=== PATIENT | female | born 1965 | race Caucasian/White ===

== ENCOUNTER 2022-05-18 09:30 | Emergency (ER) | payer MEDICARE ==
[2022-05-18 09:59] LABS: BASO # 0.1 10*3/uL (0.0-0.1); BASO % 0.4 % (0.0-1.0); EOS # 0.4 10*3/uL (0.0-0.4); EOS % 3.3 % (1.0-4.0); HEMATOCRIT 42.4 % (37.0-47.0); LYMPH # 3.9 10*3/uL (1.3-4.4); LYMPH % 33.7 % (27.0-41.0); MEAN CELL VOLUME 86.2 fl (81.0-99.0); MEAN CORPUSCULAR HGB 28.5 pg (27.0-31.0); MEAN PLATELET VOLUME 11.7 fl (9.6-12.3); MONO # 0.7 10*3/uL (0.1-1.0); MONO % 5.9 % (3.0-9.0); NEUT # 6.5 10*3/uL (2.3-7.9); NEUT % 56.1 % (47.0-73.0); PLATELET COUNT AUTOMATED 246 10*3/uL (130-400); RED BLOOD COUNT 4.92 10*6/uL (4.10-5.10); WHITE BLOOD COUNT 11.5 10*3/uL (4.8-10.8)
[2022-05-18 10:12] LABS: ACT PARTIAL THROMBO TIME 27.1 SECONDS (20.0-32.1)
[2022-05-18 10:14] LABS: ALKALINE PHOSPHATASE 79 U/L (46-116); BUN 10 mg/dl (9-23); CHLORIDE 102 mmol/L (98-107); CREATININE 0.79 mg/dL (0.55-1.02); LIPASE 45 U/L (12-53); SGPT/ALT 37 U/L (10-49); SODIUM 137 mmol/L (136-145)
[2022-05-18 10:15] LABS: TOTAL PROTEIN 7.7 gm/dL (6.0-8.0)
== END 2022-05-18 11:39 | disposition home or self-care (01) ==
LOC: ED 09:30
PROVIDERS: Family Medicine
DX: E11.65 Type 2 diabetes mellitus with hyperglycemia (principal); Z20.822 Contact with and (suspected) exposure to COVID-19

== ENCOUNTER → 2022-05-18 | Outpatient (CLI) | payer MEDICARE | END | disposition home or self-care (01) | LOC: RESCLI 09:14 | PROVIDERS: ATTEND Internal Medicine | DX: Z53.9 Procedure and treatment not carried out, unspecified reason (principal) ==

== ENCOUNTER → 2022-05-19 | Outpatient (CLI) | payer MEDICARE | END | disposition home or self-care (01) | LOC: LAB 12:23 | PROVIDERS: ATTEND Internal Medicine | DX: E11.65 Type 2 diabetes mellitus with hyperglycemia (principal) ==

== ENCOUNTER 2022-06-12 10:43 | Emergency (ER) | payer MEDICARE ==
[~2022-06-12] VITALS: Ht 157.4 cm; Wt 78.0 kg
[2022-06-12 12:27] LABS: BASO % 0.3 % (0.0-1.0); EOS # 0.2 10*3/uL (0.0-0.4); HEMATOCRIT 43.4 % (37.0-47.0); LYMPH # 3.8 10*3/uL (1.3-4.4); LYMPH % 32.8 % (27.0-41.0); MEAN CELL VOLUME 85.8 fl (81.0-99.0); MEAN CORPUSCULAR HGB 27.7 pg (27.0-31.0); MEAN CORPUSCULAR HGB CONC 32.3 g/dl (33.0-37.0); MEAN PLATELET VOLUME 11.6 fl (9.6-12.3); MONO # 0.8 10*3/uL (0.1-1.0); NEUT # 6.6 10*3/uL (2.3-7.9); NEUT % 57.6 % (47.0-73.0); PLATELET COUNT AUTOMATED 245 10*3/uL (130-400); RED BLOOD COUNT 5.06 10*6/uL (4.10-5.10); RED CELL DISTRI WIDTH 15.2 % (0-14.5); WHITE BLOOD COUNT 11.5 10*3/uL (4.8-10.8)
[2022-06-12 12:38] LABS: BILIRUBIN Negative (Negative); BLOOD Negative (Negative); CLARITY Clear (Clear); COLOR Yellow (Yellow); GLUCOSE Negative (Negative); KETONE Negative (Negative); LEUKO ESTERASE Negative (Negative); NITRITE Negative (Negative); PH 7.5 (4.5-8.0); SPECIFIC GRAVITY <= 1.005 (1.001-1.030); UROBILINOGEN 0.2 E.U./dl (0.0-1.0)
[2022-06-12 12:50] LABS: EPITHELIAL CELLS 0-2; WBC 0-2 wbc/hpf (0-5)
[2022-06-12 12:54] LABS: ALKALINE PHOSPHATASE 74 U/L (46-116); BUN 8 mg/dl (9-23); CHLORIDE 101 mmol/L (98-107); CREATININE 0.63 mg/dL (0.55-1.02); LIPASE 43 U/L (12-53); POTASSIUM 3.5 mmol/L (3.4-5.1); SGPT/ALT 38 U/L (10-49); TOTAL PROTEIN 7.4 gm/dL (6.0-8.0)
[2022-06-12] MEDS ORDERED: CIPRO500 MG PO (17:19)
[2022-06-12] MEDS ORDERED: METRONIDAZOLE500 M1 PO (17:19)
== END 2022-06-12 17:33 | disposition home or self-care (01) ==
LOC: ED 10:43
PROVIDERS: Physician Assistant
DX: K52.9 Noninfective gastroenteritis and colitis, unspecified (principal); Z88.1 Allergy status to other antibiotic agents; Z88.8 Allergy status to other drugs, medicaments and biological substances

== ENCOUNTER → 2022-07-17 | Outpatient (CLI) | payer MEDICARE ==
[~2022-07-17] MED LIST: CIPRO500 MG PO; METRONIDAZOLE500 M1 PO
[2022-07-20 17:06] LABS: FATS, NEUTRAL Normal (.); FATS, TOTAL Increased (.)
== END | disposition home or self-care (01) ==
LOC: LAB 07-16 07:26
PROVIDERS: ATTEND Nurse Practitioner Family
DX: R19.7 Diarrhea, unspecified (principal)

== ENCOUNTER → 2022-07-17 | Outpatient (CLI) | payer MEDICARE ==
[2022-07-17 08:10] LABS: HEMATOCRIT 43.7 % (37.0-47.0); MEAN CELL VOLUME 86.4 fl (81.0-99.0); MEAN CORPUSCULAR HGB 27.9 pg (27.0-31.0); MEAN CORPUSCULAR HGB CONC 32.3 g/dl (33.0-37.0); MEAN PLATELET VOLUME 12.3 fl (9.6-12.3); RED BLOOD COUNT 5.06 10*6/uL (4.10-5.10); RED CELL DISTRI WIDTH 15.1 % (0-14.5); WHITE BLOOD COUNT 10.9 10*3/uL (4.8-10.8)
== END | disposition home or self-care (01) ==
LOC: LAB 07:24
PROVIDERS: ATTEND Nurse Practitioner Family
DX: K92.1 Melena (principal)

== ENCOUNTER → 2022-08-25 | Outpatient (CLI) | payer MEDICARE | END | disposition home or self-care (01) | LOC: CT 00:26 | PROVIDERS: ATTEND Specialist | DX: J32.0 Chronic maxillary sinusitis (principal); R59.0 Localized enlarged lymph nodes ==

== ENCOUNTER → 2022-09-08 | Outpatient (CLI) | payer MEDICARE | END | disposition home or self-care (01) | LOC: US 01:29 | PROVIDERS: ATTEND Internal Medicine | DX: N60.02 Solitary cyst of left breast (principal); R92.2 Inconclusive mammogram ==

== ENCOUNTER 2023-03-02 07:35 | Emergency (ER) | payer MEDICARE ==
[~2023-03-02] VITALS: Ht 157.4 cm; Wt 79.4 kg
[2023-03-02 08:38] LABS: BILIRUBIN Negative (Negative); BLOOD Negative (Negative); CLARITY Clear (Clear); COLOR Yellow (Yellow); GLUCOSE 3+ (Negative); KETONE Negative (Negative); LEUKO ESTERASE Negative (Negative); NITRITE Negative (Negative); SPECIFIC GRAVITY <= 1.005 (1.001-1.030); UROBILINOGEN 0.2 E.U./dl (0.0-1.0)
[2023-03-02 09:01] LABS: BASO % 0.4 % (0.0-1.0); EOS # 0.2 10*3/uL (0.0-0.4); EOS % 2.1 % (1.0-4.0); HEMATOCRIT 44.2 % (37.0-47.0); LYMPH # 3.1 10*3/uL (1.3-4.4); LYMPH % 34.3 % (27.0-41.0); MEAN CELL VOLUME 80.5 fl (81.0-99.0); MEAN CORPUSCULAR HGB 25.3 pg (27.0-31.0); MEAN CORPUSCULAR HGB CONC 31.4 g/dl (33.0-37.0); MEAN PLATELET VOLUME 11.8 fl (9.6-12.3); MONO # 0.7 10*3/uL (0.1-1.0); MONO % 7.2 % (3.0-9.0); NEUT % 55.7 % (47.0-73.0); PLATELET COUNT AUTOMATED 271 10*3/uL (130-400); RED BLOOD COUNT 5.49 10*6/uL (4.10-5.10); RED CELL DISTRI WIDTH 15.5 % (0-14.5)
[2023-03-02 09:10] LABS: BACTERIA TRACE; EPITHELIAL CELLS 0-2; WBC 0-2 wbc/hpf (0-5); YEAST TRACE
[2023-03-02 09:12] LABS: ACT PARTIAL THROMBO TIME 27.6 SECONDS (20.0-32.1)
[2023-03-02 09:16] LABS: ALKALINE PHOSPHATASE 95 U/L (46-116); BUN 8 mg/dl (9-23); CHLORIDE 111 mmol/L (98-107); LIPASE 38 U/L (12-53); SGPT/ALT 37 U/L (10-49); TOTAL PROTEIN 7.6 gm/dL (6.0-8.0)
[2023-03-02] MEDS ORDERED: ONDANSETRON4 MG SL (10:55)
== END 2023-03-02 11:06 | disposition home or self-care (01) ==
LOC: ED 07:35
PROVIDERS: Internal Medicine
DX: K59.00 Constipation, unspecified (principal); E11.9 Type 2 diabetes mellitus without complications; Z88.1 Allergy status to other antibiotic agents; Z88.8 Allergy status to other drugs, medicaments and biological substances; Z87.891 Personal history of nicotine dependence; Z98.890 Other specified postprocedural states

== ENCOUNTER 2023-04-17 17:37 | Emergency (ER) | payer MEDICARE ==
[~2023-04-17] VITALS: Ht 157.4 cm; Wt 78.9 kg
[~2023-04-17 17:37] MED LIST changes: +ONDANSETRON4 MG SL
[2023-04-17] MEDS ORDERED: LISINOPRIL5 MG PO (18:18)
[2023-04-17] MEDS ORDERED: PANTOPRAZOLE SO40 MG PO (18:18)
[2023-04-17] MEDS ORDERED: CYMBALTA30 MG PO (18:18)
[2023-04-17] MEDS ORDERED: MONTELUKAST SOD10 MG PO (18:19)
[2023-04-17] MEDS ORDERED: ZETIA10 MG PO (18:19)
[2023-04-17] MEDS ORDERED: ATORVASTATIN CA40 M1 PO (18:19)
[2023-04-17] MEDS ORDERED: [UNRECOGNIZED DRUG - OTHER] SQ (18:21)
[2023-04-17] MEDS ORDERED: JARDIANCE25 MG PO (18:22)
[2023-04-17] MEDS ORDERED: ZYRTEC10 M2 PO (18:22)
== END 2023-04-17 19:43 | disposition home or self-care (01) ==
LOC: ED 17:37
DX: S90.32XA Contusion of left foot, initial encounter (principal); E11.9 Type 2 diabetes mellitus without complications; Z88.1 Allergy status to other antibiotic agents; Z88.8 Allergy status to other drugs, medicaments and biological substances; Z98.890 Other specified postprocedural states; W20.8XXA Other cause of strike by thrown, projected or falling object, initial encounter; Y93.89 Activity, other specified; Y92.89 Other specified places as the place of occurrence of the external cause; Y99.8 Other external cause status

== ENCOUNTER → 2023-05-25 | Outpatient (CLI) | payer MEDICARE ==
[~2023-05-25] MED LIST changes: +ATORVASTATIN CA40 M1 PO; +BAYER ASPIRIN C81 MG PO; +CYMBALTA30 MG PO; +JARDIANCE25 MG PO; +LISINOPRIL5 MG PO; +MONTELUKAST SOD10 MG PO; +OCUFLOX 0.3% 5 M5 ML OPH; +PANTOPRAZOLE SO40 MG PO; +ZETIA10 MG PO; +ZYRTEC10 M2 PO; +[UNRECOGNIZED DRUG - OTHER] SQ
== END | disposition home or self-care (01) ==
LOC: RESCLI 00:45
PROVIDERS: ATTEND Emergency Medicine
DX: E11.65 Type 2 diabetes mellitus with hyperglycemia (principal); E78.5 Hyperlipidemia, unspecified; I00 Rheumatic fever without heart involvement; M06.9 Rheumatoid arthritis, unspecified; I10 Essential (primary) hypertension; J32.9 Chronic sinusitis, unspecified; K21.9 Gastro-esophageal reflux disease without esophagitis; J30.2 Other seasonal allergic rhinitis; I25.10 Atherosclerotic heart disease of native coronary artery without angina pectoris; K58.9 Irritable bowel syndrome, unspecified; E55.9 Vitamin D deficiency, unspecified; Z88.8 Allergy status to other drugs, medicaments and biological substances; Z79.899 Other long term (current) drug therapy

== ENCOUNTER → 2023-05-26 | Day surgery (SDC) | payer MEDICARE ==
[~2023-05-26] VITALS: Ht 175.2 cm; Wt 90.7 kg
[2023-05-26 08:28] VITALS: BP 119/65
[2023-05-26 08:55] VITALS: BP 130/78
[2023-05-26 09:05] VITALS: BP 136/75
[2023-05-26 09:33] VITALS: BP 148/47
== END ==
LOC: SDC 05-21 14:00
PROVIDERS: ATTEND Specialist
DX: H65.493 Other chronic nonsuppurative otitis media, bilateral (principal); I10 Essential (primary) hypertension; E11.9 Type 2 diabetes mellitus without complications; K44.9 Diaphragmatic hernia without obstruction or gangrene; I25.10 Atherosclerotic heart disease of native coronary artery without angina pectoris; E78.00 Pure hypercholesterolemia, unspecified; F17.210 Nicotine dependence, cigarettes, uncomplicated; Z85.42 Personal history of malignant neoplasm of other parts of uterus; Z79.899 Other long term (current) drug therapy; Z90.710 Acquired absence of both cervix and uterus; Z98.818 Other dental procedure status; Z98.890 Other specified postprocedural states; Z88.8 Allergy status to other drugs, medicaments and biological substances

== ENCOUNTER → 2023-07-06 | Outpatient (CLI) | payer MEDICARE | END | disposition home or self-care (01) | LOC: CT 06-30 02:13 | PROVIDERS: ATTEND Family Medicine | DX: Z12.2 Encounter for screening for malignant neoplasm of respiratory organs (principal); R91.8 Other nonspecific abnormal finding of lung field; F17.210 Nicotine dependence, cigarettes, uncomplicated ==

== ENCOUNTER → 2023-07-29 | Outpatient (CLI) | payer MEDICARE | END | disposition home or self-care (01) | LOC: MAMMO 09:00 | PROVIDERS: ATTEND Family Medicine | DX: Z12.31 Encounter for screening mammogram for malignant neoplasm of breast (principal); N64.89 Other specified disorders of breast ==

== ENCOUNTER 2023-08-02 11:27 | Emergency (ER) | payer MEDICARE ==
[~2023-08-02] VITALS: Ht 157.4 cm; Wt 77.1 kg
[2023-08-02 13:09] LABS: BASO # 0.1 10*3/uL (0.0-0.1); BASO % 0.5 % (0.0-1.0); EOS # 0.3 10*3/uL (0.0-0.4); EOS % 2.1 % (1.0-4.0); HEMATOCRIT 44.5 % (37.0-47.0); LYMPH # 2.9 10*3/uL (1.3-4.4); LYMPH % 23.6 % (27.0-41.0); MEAN CELL VOLUME 80.8 fl (81.0-99.0); MEAN CORPUSCULAR HGB 24.7 pg (27.0-31.0); MEAN CORPUSCULAR HGB CONC 30.6 g/dl (33.0-37.0); MEAN PLATELET VOLUME 11.3 fl (9.6-12.3); MONO % 8.1 % (3.0-9.0); NEUT # 7.9 10*3/uL (2.3-7.9); NEUT % 65.2 % (47.0-73.0); PLATELET COUNT AUTOMATED 265 10*3/uL (130-400); RED BLOOD COUNT 5.51 10*6/uL (4.10-5.10); RED CELL DISTRI WIDTH 18.3 % (0-14.5); WHITE BLOOD COUNT 12.2 10*3/uL (4.8-10.8)
[2023-08-02 13:20] LABS: ACT PARTIAL THROMBO TIME 27.1 SECONDS (20.0-32.1)
[2023-08-02 13:29] LABS: BUN 7 mg/dl (9-23); CHLORIDE 106 mmol/L (98-107); POTASSIUM 3.6 mmol/L (3.4-5.1)
[2023-08-02] MEDS ORDERED: Ketorolac Tromethamine 60 MG/2 ML VIAL IM ONE (13:35)
[2023-08-02] MEDS ORDERED: LEVOFLOXACIN750 M2 PO (13:40)
[2023-08-02] MEDS ORDERED: Motrin,Rufen800 MG PO (13:40)
[2023-08-02] MEDS ORDERED: Acetaminophen/Hydrocodone 5 MG/325 MG TABLET PO ONE (13:45)
[2023-08-02] MEDS ORDERED: PREDNISONE20 M1 PO (13:54)
[2023-08-02] MEDS ORDERED: methylPREDNISolone sod succ 125 MG VIAL IM ONE (13:55)
== END 2023-08-02 14:09 | disposition home or self-care (01) ==
LOC: ED 11:27
PROVIDERS: Nurse Practitioner Family
DX: J32.9 Chronic sinusitis, unspecified (principal); Z20.822 Contact with and (suspected) exposure to COVID-19; I25.10 Atherosclerotic heart disease of native coronary artery without angina pectoris; I10 Essential (primary) hypertension; E11.9 Type 2 diabetes mellitus without complications; R10.2 Pelvic and perineal pain; Z88.1 Allergy status to other antibiotic agents; Z88.8 Allergy status to other drugs, medicaments and biological substances; Z90.710 Acquired absence of both cervix and uterus; Z98.890 Other specified postprocedural states

== ENCOUNTER → 2023-12-31 | Outpatient (CLI) | payer MEDICARE ==
[~2023-12-31] MED LIST changes: +LEVOFLOXACIN750 M2 PO; +Motrin,Rufen800 MG PO; +PREDNISONE20 M1 PO
== END | disposition home or self-care (01) ==
LOC: US 00:39
PROVIDERS: ATTEND Internal Medicine
DX: R59.9 Enlarged lymph nodes, unspecified (principal)

== ENCOUNTER → 2024-04-12 | Outpatient (CLI) | payer MEDICARE | END | disposition home or self-care (01) | LOC: CT 04-11 09:00 | PROVIDERS: ATTEND Internal Medicine | DX: Z12.2 Encounter for screening for malignant neoplasm of respiratory organs (principal); F17.210 Nicotine dependence, cigarettes, uncomplicated; R91.8 Other nonspecific abnormal finding of lung field ==

== ENCOUNTER → 2024-06-26 | Outpatient (CLI) | payer MEDICARE | END | disposition home or self-care (01) | LOC: RESCLI 02:01 | PROVIDERS: ATTEND Family Medicine | DX: M06.9 Rheumatoid arthritis, unspecified (principal); E11.9 Type 2 diabetes mellitus without complications; K58.9 Irritable bowel syndrome, unspecified; J30.2 Other seasonal allergic rhinitis; I25.10 Atherosclerotic heart disease of native coronary artery without angina pectoris; E78.5 Hyperlipidemia, unspecified; F32.9 Major depressive disorder, single episode, unspecified; I10 Essential (primary) hypertension; J32.9 Chronic sinusitis, unspecified; Z98.890 Other specified postprocedural states; F17.210 Nicotine dependence, cigarettes, uncomplicated; Z88.8 Allergy status to other drugs, medicaments and biological substances; Z90.710 Acquired absence of both cervix and uterus; Z79.899 Other long term (current) drug therapy ==

== ENCOUNTER → 2024-10-27 | Outpatient (CLI) | payer MEDICARE ==
[2024-10-27 07:53] LABS: HEMATOCRIT 36.6 % (37.0-47.0); MEAN CORPUSCULAR HGB 24.2 pg (27.0-31.0); MEAN CORPUSCULAR HGB CONC 30.6 g/dl (33.0-37.0); MEAN PLATELET VOLUME 10.8 fl (9.6-12.3); PLATELET COUNT AUTOMATED 251 10*3/uL (130-400); RED BLOOD COUNT 4.63 10*6/uL (4.10-5.10); RED CELL DISTRI WIDTH 17.8 % (0-14.5); WHITE BLOOD COUNT 12.2 10*3/uL (4.8-10.8)
[2024-10-27 07:56] LABS: MANUAL DIFF REFLEX YES
[2024-10-27 08:16] LABS: BUN 13 mg/dl (9-23); CHLORIDE 106 mmol/L (98-107); CHOLESTEROL 126 mg/dL (<200); LDL CHOLESTEROL 66 mg/dL (9-159); POTASSIUM 3.3 mmol/L (3.4-5.1)
[2024-10-27 08:17] LABS: ALKALINE PHOSPHATASE 77 U/L (46-116); SGPT/ALT 15 U/L (5-49); TOTAL PROTEIN 7.1 gm/dL (6.0-8.0)
[2024-10-27 08:19] LABS: TOTAL CELLS COUNTED 100 #CELLS
[2024-10-27 08:20] LABS: PLATELET SUFFICIENCY NORMAL (NORMAL)
[2024-10-27 09:09] LABS: VITAMIN D, 25-HYDROXY 13.8 ng/mL (30-100)
[2024-10-28 06:07] LABS: HEP B SURFACE Ab, Qual Non Reactive (.)
== END | disposition home or self-care (01) ==
LOC: LAB 01:57
PROVIDERS: ATTEND Internal Medicine
DX: E11.65 Type 2 diabetes mellitus with hyperglycemia (principal); M06.9 Rheumatoid arthritis, unspecified; E78.5 Hyperlipidemia, unspecified; M05.9 Rheumatoid arthritis with rheumatoid factor, unspecified; Z11.1 Encounter for screening for respiratory tuberculosis; Z11.59 Encounter for screening for other viral diseases; Z79.899 Other long term (current) drug therapy